=== PATIENT | male | born 2000 | race Two or more races ===

== ENCOUNTER 2018-09-20 07:16 | Emergency (ER) | payer OTHER ==
[2018-09-20] MEDS ORDERED: Sodium Chloride 0.9% 1,000 ML IV ONE (07:19)
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
[2018-09-20] MEDS ORDERED: Sodium Chloride 0.9% 10 ML Syringe FLUSH ONE (07:40)
[2018-09-20] MEDS ORDERED: Iopamidol 755 Mg/ML 200 ML Bottle IV ONE (07:40)
[2018-09-20] MEDS ORDERED: LORazepam 2 MG/ML SDV IVPUSH ONE (08:43)
--- NOTE | 2018-09-20 08:49 | CT ---
CT cervical spine Technique: Multiple axial sections were obtained from above the C1 inferiorly to the top of T2. Reconstructed sagittal and coronal images were reviewed. Findings: Vertebral body heights and disc spaces are maintained. Prevertebral soft tissues are normal. Vertebral bodies and posterior arches are intact. No fracture is seen. No abnormal subluxation is identified. Mild scoliosis is present. Impression: 1. Mild cervical scoliosis which is most likely positional. 2. Nothing acute is identified on CT study of the cervical spine. Diagnostic code #1
--- NOTE | 2018-09-20 08:49 | CT ---
Head CT Technique: Multiple axial sections through the brain were obtained. Intravenous contrast was not utilized. Comparison: No prior intracranial imaging. Findings: Ventricles along with basal cisterns and sulci over the convexities are within normal limits for the patient's age. No abnormal parenchymal densities are seen. No evidence of intracranial hemorrhage. No midline shift or mass effect is seen. Bone window settings were reviewed which show no acute calvarial abnormality. Visualized sinuses are clear. Impression: 1. Nothing acute is identified on noncontrast head CT exam. Diagnostic code #1
--- NOTE | 2018-09-20 08:49 | CT ---
CT chest Technique: Multiple axial sections were obtained from above the lung apices inferiorly through the lung bases. Intravenous contrast was utilized. Comparison: No prior chest imaging. Findings: No pericardial fluid is seen. Mediastinum and hilar regions are within normal limits. Opacified great vessels appear within normal limits. Hilar regions are unremarkable. Lung window settings were reviewed which shows no pleural effusion. No pneumothorax is seen. No pulmonary contusion is identified. Bone window settings were reviewed which shows no compression deformities within the thoracic spine. No discrete rib fracture is appreciated. Impression: 1. Nothing acute is identified on CT study of the chest. Diagnostic code #1 CT abdomen and pelvis Technique: Multiple axial sections were obtained from above the dome of the diaphragm inferiorly through the pubic symphysis. Intravenous contrast was utilized. No oral contrast has been given. Delayed images were obtained through the bladder. Comparison: No prior abdominal imaging is available. Findings: Liver shows no focal parenchymal abnormality. Spleen appears within normal limits. Adrenal glands show no nodule. Symmetric contrast enhancement is seen of both kidneys which appear within normal limits. Gallbladder contains no calcified gallstones. Aorta shows no aneurysm. No retroperitoneal adenopathy or mesenteric abnormalities are seen. No pelvic mass or adenopathy is seen. No free fluid or inflammatory change is seen. Delayed images show contrast within both distal ureters and within the bladder. Bone window settings were reviewed which show no discrete pelvic fracture. Right and left hips appear to be intact. No compression deformities are seen within the lumbar spine. Impression: 1. Nothing acute is identified on CT study of the abdomen and pelvis. Diagnostic code #1
== END 2018-09-20 08:40 | disposition home or self-care (01) ==
LOC: JD.ED 07:16
DX: S13.9XXA Sprain of joints and ligaments of unspecified parts of neck, initial encounter (principal); S00.03XA Contusion of scalp, initial encounter; S20.212A Contusion of left front wall of thorax, initial encounter; V58.5XXA Driver of pick-up truck or van injured in noncollision transport accident in traffic accident, initial encounter
CPT/HCPCS: 36415; 70450; 71260; 72125; 74177; 80053; 81001; 85007; 85027; 85610; 85730; 96360; 99284; J7040; Q9967